=== PATIENT | female | born 1945 | race African-American/Black ===

== ENCOUNTER 2023-05-06 13:15 | Inpatient (IN) | payer MEDICARE, MEDICAID ==
[~2023-05-06] VITALS: Ht 152.4 cm; Wt 80.7 kg
[~2023-05-06 13:15] MED LIST: INSU100C6
[2023-05-06 14:11] LABS: BG BASE EXCESS -2.5 mmol/L (-2.0-2.0); BG CARBOXYHEMOGLOBIN 0.9 % (0.5-1.5); BG DEOXYHEMOGLOBIN 4.6 % (0.0-5.0); BG FRACTION INSPIRED OXYGEN 21; BG METHEMOGLOBIN 0.2 % (0.0-1.5); BG OXYGEN SATURATION 95.3 % (92.0-98.5); BG OXYHEMOGLOBIN 94.3 % (94.0-97.0); BG PCO2 37.3 mmHg (35.0-45.0); BG PH 7.388 (7.350-7.450); BG SAMPLE SITE RIGHT RADIAL; BG TOTAL HEMOGLOBIN 14.4 g/dL (12.0-18.0); BG VENT MODE ROOM AIR
[2023-05-06 15:20] LABS: BASOPHILS % 0.5 % (0.0-2.0); EOSINOPHILS % 0.3 % (0.0-5.0); HEMOGLOBIN. 13.1 g/dL (12.0-16.0); LYMPHOCYTES % 14.5 % (20.0-50.0); MEAN CORPUSCULAR HEMOGLOBIN 30.2 pg (28.0-32.0); MEAN CORPUSCULAR VOLUME 94.4 fL (81.0-99.0); MONOCYTES % 5.3 % (2.0-8.0); NEUTROPHILS % 79.4 % (40.0-76.0); PLATELET 170 x1000/uL (130-400); RED BLOOD CELL COUNT 4.35 mill/uL (4.2-5.4); RED CELL DISTRIBUTION WIDTH 13.5 % (11.6-14.6); WHITE BLOOD COUNT 10.7 x1000/uL (4.5-11.0)
[2023-05-06 15:36] LABS: ALANINE AMINOTRANSFERASE 12 IU/L (10-49); ALBUMIN 3.9 g/dL (3.2-4.8); ASPARTATE AMINOTRANSFERASE 18 IU/L (<34); BILIRUBIN TOTAL 0.3 mg/dL (0.1-1.0); CALCIUM 8.8 mg/dL (8.7-10.4); CARBON DIOXIDE 22 mEq/L (21-32); CHLORIDE 106 mEq/L (98-107); CREATININE 1.3 mg/dL (0.6-1.0); ETHANOL BLOOD < 10 mg/dL (<10); GLUCOSE 263 mg/dL (70-105); POTASSIUM 4.7 mEq/L (3.5-5.1); PROTEIN TOTAL 7.5 g/dL (6.0-8.3); SODIUM 136 mEq/L (136-145); TROPONIN I HIGH SENSITIVITY 17 ng/L (3.0-34); UREA NITROGEN BLOOD 23 mg/dL (9-23)
[2023-05-06 16:08] LABS: CLARITY URINE CLOUDY (CLEAR); COLOR URINE YELLOW (YELLOW); GLUCOSE URINE 2+ (NEGATIVE); KETONES URINE NEGATIVE (NEGATIVE); LEUKOCYTE ESTERASE URINE 1+ (NEGATIVE); NITRITE URINE POSITIVE (NEGATIVE); OCCULT BLOOD URINE TRACE (NEGATIVE); PH URINE 5.5 (4.5-8.0); PROTEIN URINE 2+ (NEGATIVE); SPECIFIC GRAVITY URINE 1.019 (1.005-1.030); UROBILINOGEN URINE 0.2 E.U./dL (0.2-1.0)
[2023-05-06 16:25] LABS: BETA HYDROXYBUTYRATE 0.1 mMol/L (0.0-0.3)
[2023-05-06 16:28] LABS: BACTERIA URINE 4+; RBC URINE 0-2 /hpf (0-2); SQUAMOUS EPITHELIAL CELL URINE 1+ /lpf (RARE/1+); WBC URINE 15-25 /hpf (0-2)
[2023-05-06 16:40] LABS: *AMPHETAMINES SCREEN URINE NEGATIVE (NEGATIVE); *BARBITURATES SCREEN URINE NEGATIVE (NEGATIVE); *BENZODIAZEPINES SCREEN URINE NEGATIVE (NEGATIVE); *COCAINE SCREEN URINE NEGATIVE (NEGATIVE); CANNABINOID URINE SCREEN NEGATIVE (NEGATIVE); ECSTASY MDMA SCREEN URINE NEGATIVE (NEGATIVE); METHADONE URINE SCREEN Neg (NEGATIVE); OPIATES URINE SCREEN NEGATIVE (NEGATIVE); PHENCYCLIDINE URINE SCREEN NEGATIVE (NEGATIVE)
[2023-05-06] MEDS ORDERED: SODIUM CHLORIDE 0.9% 1000ML BAG (SEPSIS BOLUS) IV NR (17:30)
[2023-05-06] MEDS ORDERED: SODIUM CHLORIDE 0.9% 1,000 ML IV ONE (17:30)
[2023-05-06] MEDS ORDERED: CEFTRIAXONE 1GM PREMIX 50 ML IV NR (17:30)
[2023-05-06] MEDS ORDERED: LABETALOL 5MG/ML SYR 20 MG/4 ML SYRINGE IV ONE (17:45)
[2023-05-06 17:49] LABS: LACTIC ACID 2.7 mmol/L (0.4-2.0)
[2023-05-07 05:25] VITALS: BP 142/56; PULSE 81; RESP 18; TEMP 97.7
[2023-05-07 08:00] VITALS: BP 177/74; PULSE 78; RESP 16; TEMP 96.7
[2023-05-07] MEDS ORDERED: IPRATROPIUM/ALBUTEROL 0.5-3(2.5)MG/3ML NEB HHN PRN (10:45)
[2023-05-07] MEDS ORDERED: DEXTROSE 50% WATER 50ML SYRINGE IV PRN (10:45)
[2023-05-07] MEDS ORDERED: CLONIDINE 0.1MG TABLET PO PRN (10:45)
[2023-05-07] MEDS ORDERED: ACETAMINOPHEN 325MG TABLET PO PRN (10:45)
[2023-05-07] MEDS ORDERED: DOCUSATE SODIUM 100MG CAPSULE PO PRN (10:45)
[2023-05-07] MEDS: SODIUM CHLORIDE 0.45% 1,000 ML IV SCH (10:45)
[2023-05-07] MEDS ORDERED: ONDANSETRON HCL 4MG/2ML INJ IV PRN (10:45)
[2023-05-07] MEDS ORDERED: NALOXONE HCL 0.4MG/ML VIAL IV PRN (11:15)
[2023-05-07 12:00] VITALS: BP 166/53; PULSE 75; RESP 16; TEMP 96.1
[2023-05-07] MEDS: BLOOD SUGAR DIAGNOSTIC STRIP TEST SCH ×3 (12:10→21:00)
[2023-05-07] MEDS: INSULIN LISPRO 100 UNITS/ML SUBCUT SCH ×3 (12:40→23:02)
[2023-05-07] MEDS: QUETIAPINE FUMARATE 25MG TABLET PO SCH ×2 (13:49→23:01)
[2023-05-07] MEDS: AMLODIPINE 10MG TABLET PO SCH (13:50)
[2023-05-07] MEDS: HYDRALAZINE HCL 25MG TABLET PO SCH ×2 (13:50→23:01)
[2023-05-07 16:00] VITALS: BP 122/54; PULSE 84; RESP 18; TEMP 96
[2023-05-07 17:10] LABS: BASOPHILS % 0.7 % (0.0-2.0); EOSINOPHILS % 1.1 % (0.0-5.0); HEMATOCRIT. 37.7 % (36.0-48.0); HEMOGLOBIN. 12.2 g/dL (12.0-16.0); MEAN CORPUSCULAR HEMOGLOBIN 30.6 pg (28.0-32.0); MEAN CORPUSCULAR HGB CONC 32.3 g/dL (31.0-37.0); MEAN CORPUSCULAR VOLUME 94.7 fL (81.0-99.0); MONOCYTES % 7.3 % (2.0-8.0); NEUTROPHILS % 53.9 % (40.0-76.0); PLATELET 168 x1000/uL (130-400); RED BLOOD CELL COUNT 3.99 mill/uL (4.2-5.4); RED CELL DISTRIBUTION WIDTH 13.1 % (11.6-14.6); WHITE BLOOD COUNT 7.9 x1000/uL (4.5-11.0)
[2023-05-07 17:47] LABS: AMMONIA 31 uMol/L (<32)
[2023-05-07 17:52] LABS: ALANINE AMINOTRANSFERASE 11 IU/L (10-49); ALBUMIN 3.7 g/dL (3.2-4.8); ASPARTATE AMINOTRANSFERASE 21 IU/L (<34); BILIRUBIN TOTAL 0.7 mg/dL (0.1-1.0); CALCIUM 8.8 mg/dL (8.7-10.4); CARBON DIOXIDE 18 mEq/L (21-32); CHLORIDE 107 mEq/L (98-107); CREATININE 1.1 mg/dL (0.6-1.0); GLUCOSE 201 mg/dL (70-105); POTASSIUM 4.1 mEq/L (3.5-5.1); PROTEIN TOTAL 7.1 g/dL (6.0-8.3); SODIUM 138 mEq/L (136-145); UREA NITROGEN BLOOD 15 mg/dL (9-23)
[2023-05-07] MEDS: CEFTRIAXONE 1,000 MG in DEXTROSE 5% WATER 50 ML IV SCH (18:34)
[2023-05-07 20:00] VITALS: BP 150/66; PULSE 92; RESP 17; TEMP 97.5
[2023-05-07] MEDS: HYDROCODONE/ACETAMINOPHEN 5/325MG TABLET PO PRN (23:06)
[2023-05-08] VITALS: BP 97/44; PULSE 58; RESP 18; TEMP 97.5
[2023-05-08 04:00] VITALS: BP 147/64; PULSE 82; RESP 18; TEMP 97.7
[2023-05-08 06:17] LABS: BASOPHILS % 0.5 % (0.0-2.0); EOSINOPHILS % 0.3 % (0.0-5.0); HEMATOCRIT. 36.2 % (36.0-48.0); HEMOGLOBIN. 12.2 g/dL (12.0-16.0); LYMPHOCYTES % 18.9 % (20.0-50.0); MEAN CORPUSCULAR HEMOGLOBIN 30.9 pg (28.0-32.0); MEAN CORPUSCULAR HGB CONC 33.6 g/dL (31.0-37.0); MEAN PLATELET VOLUME 10.8 fl (7.4-10.4); NEUTROPHILS % 72.3 % (40.0-76.0); PLATELET 144 x1000/uL (130-400); RED BLOOD CELL COUNT 3.93 mill/uL (4.2-5.4); RED CELL DISTRIBUTION WIDTH 13.5 % (11.6-14.6); WHITE BLOOD COUNT 8.2 x1000/uL (4.5-11.0)
[2023-05-08 06:21] LABS: CALCIUM 8.7 mg/dL (8.7-10.4); CREATININE 1.3 mg/dL (0.6-1.0); POTASSIUM 4.5 mEq/L (3.5-5.1)
[2023-05-08] MEDS: BLOOD SUGAR DIAGNOSTIC STRIP TEST SCH ×4 (06:38→20:50)
[2023-05-08] MEDS: HYDRALAZINE HCL 25MG TABLET PO SCH ×3 (07:13→21:18)
[2023-05-08] MEDS: INSULIN LISPRO 100 UNITS/ML SUBCUT SCH ×4 (07:16→21:16)
[2023-05-08] MEDS: SODIUM CHLORIDE 0.45% 1,000 ML IV SCH (07:17)
[2023-05-08 08:00] VITALS: BP 103/45; PULSE 62; RESP 16; TEMP 97
[2023-05-08] MEDS: AMLODIPINE 10MG TABLET PO SCH (08:37)
[2023-05-08] MEDS: QUETIAPINE FUMARATE 25MG TABLET PO SCH ×2 (08:37→20:49)
[2023-05-08 12:00] VITALS: BP 127/78; PULSE 85; RESP 18; TEMP 96.6
[2023-05-08 16:00] VITALS: BP 118/44; PULSE 89; RESP 18; TEMP 96.4
[2023-05-08] MEDS: ACETAMINOPHEN 325MG TABLET PO PRN (16:41)
[2023-05-08] MEDS: CEFTRIAXONE 1,000 MG in DEXTROSE 5% WATER 50 ML IV SCH (16:41)
[2023-05-08 20:00] VITALS: BP 104/48; PULSE 87; RESP 18; TEMP 97.5
[2023-05-09] VITALS: BP 153/50; PULSE 86; RESP 20; TEMP 98.2
[2023-05-09] MEDS: ACETAMINOPHEN 325MG TABLET PO PRN (02:58)
[2023-05-09 04:00] VITALS: BP 158/67; PULSE 89; RESP 18; TEMP 98.2
[2023-05-09] MEDS: HYDRALAZINE HCL 25MG TABLET PO SCH ×3 (06:23→22:00)
[2023-05-09] MEDS: BLOOD SUGAR DIAGNOSTIC STRIP TEST SCH ×4 (06:23→21:00)
[2023-05-09] MEDS: INSULIN LISPRO 100 UNITS/ML SUBCUT SCH ×4 (06:45→20:59)
[2023-05-09 08:00] VITALS: BP 139/59; PULSE 83; RESP 20; TEMP 97.7
[2023-05-09] MEDS: QUETIAPINE FUMARATE 25MG TABLET PO SCH ×2 (08:21→20:56)
[2023-05-09] MEDS: AMLODIPINE 10MG TABLET PO SCH (08:21)
[2023-05-09 10:35] LABS: EOSINOPHILS % 2.7 % (0.0-5.0); HEMATOCRIT. 38.2 % (36.0-48.0); HEMOGLOBIN. 12.7 g/dL (12.0-16.0); LYMPHOCYTES % 32.1 % (20.0-50.0); MEAN CORPUSCULAR HEMOGLOBIN 30.7 pg (28.0-32.0); MEAN CORPUSCULAR HGB CONC 33.2 g/dL (31.0-37.0); MEAN CORPUSCULAR VOLUME 92.5 fL (81.0-99.0); MEAN PLATELET VOLUME 10.3 fl (7.4-10.4); MONOCYTES % 8.8 % (2.0-8.0); NEUTROPHILS % 55.4 % (40.0-76.0); PLATELET 177 x1000/uL (130-400); RED BLOOD CELL COUNT 4.13 mill/uL (4.2-5.4); RED CELL DISTRIBUTION WIDTH 13.7 % (11.6-14.6); WHITE BLOOD COUNT 7.3 x1000/uL (4.5-11.0)
[2023-05-09 11:48] LABS: CREATININE 1.3 mg/dL (0.6-1.0)
[2023-05-09 12:00] VITALS: BP 115/58; PULSE 93; RESP 20; TEMP 97.6
[2023-05-09] MEDS: SODIUM CHLORIDE 0.45% 1,000 ML IV SCH (12:15)
[2023-05-09 16:00] VITALS: BP 128/49; PULSE 91; RESP 20; TEMP 97.7
[2023-05-09] MEDS: CEFTRIAXONE 1,000 MG in DEXTROSE 5% WATER 50 ML IV SCH (17:00)
[2023-05-09] MEDS: HYDROCODONE/ACETAMINOPHEN 5/325MG TABLET PO PRN (19:11)
[2023-05-09 20:00] VITALS: BP 101/49; PULSE 87; RESP 20; TEMP 97.5
[2023-05-10] VITALS: BP 142/59; PULSE 88; RESP 19; TEMP 96.8
[2023-05-10 04:00] VITALS: BP 146/69; PULSE 85; RESP 18; TEMP 96.8
[2023-05-10] MEDS: BLOOD SUGAR DIAGNOSTIC STRIP TEST SCH ×2 (06:30→12:25)
[2023-05-10] MEDS: HYDRALAZINE HCL 25MG TABLET PO SCH ×2 (06:30→12:57)
[2023-05-10] MEDS: INSULIN LISPRO 100 UNITS/ML SUBCUT SCH ×2 (06:39→12:25)
[2023-05-10 08:00] VITALS: BP 112/49; PULSE 103; RESP 20; TEMP 97.7
[2023-05-10] MEDS: QUETIAPINE FUMARATE 25MG TABLET PO SCH (08:22)
[2023-05-10] MEDS: AMLODIPINE 10MG TABLET PO SCH (08:23)
[2023-05-10 11:31] LABS: BASOPHILS % 0.9 % (0.0-2.0); EOSINOPHILS % 1.3 % (0.0-5.0); HEMATOCRIT. 32.1 % (36.0-48.0); HEMOGLOBIN. 10.9 g/dL (12.0-16.0); LYMPHOCYTES % 19.6 % (20.0-50.0); MEAN CORPUSCULAR HEMOGLOBIN 31.1 pg (28.0-32.0); MEAN CORPUSCULAR HGB CONC 33.9 g/dL (31.0-37.0); MEAN CORPUSCULAR VOLUME 91.7 fL (81.0-99.0); MEAN PLATELET VOLUME 10.8 fl (7.4-10.4); MONOCYTES % 9.5 % (2.0-8.0); NEUTROPHILS % 68.7 % (40.0-76.0); PLATELET 159 x1000/uL (130-400); RED CELL DISTRIBUTION WIDTH 13.9 % (11.6-14.6); WHITE BLOOD COUNT 5.7 x1000/uL (4.5-11.0)
[2023-05-10 12:00] VITALS: BP 143/56; PULSE 110; RESP 18; TEMP 97.8
[2023-05-10 12:07] LABS: CALCIUM 8.5 mg/dL (8.7-10.4); CREATININE 1.2 mg/dL (0.6-1.0); POTASSIUM 4.4 mEq/L (3.5-5.1)
[2023-05-10] MEDS ORDERED: CIPR-264 MT (13:31)
[2023-05-10 14:40] VITALS: BP 135/86; PULSE 95; TEMP 98; O2SAT 96
[2023-05-10 15:54] VITALS: BP 156/45; PULSE 95; RESP 20; TEMP 97
== END 2023-05-10 16:20 | disposition home or self-care (01) | DRG 554 ==
LOC: ER 13:15 → 8WST 21:05 → EDBEDREQ 21:18 → EDBEDREQTM 21:18
PROVIDERS: ADMIT Internal Medicine; ATTEND Internal Medicine
DX: M19.012 Primary osteoarthritis, left shoulder (principal); N17.9 Acute kidney failure, unspecified; N39.0 Urinary tract infection, site not specified; E87.20 Acidosis, unspecified; I16.0 Hypertensive urgency; B96.89 Other specified bacterial agents as the cause of diseases classified elsewhere; E11.9 Type 2 diabetes mellitus without complications; I10 Essential (primary) hypertension; F22 Delusional disorders; Z79.899 Other long term (current) drug therapy
CPT/HCPCS: 36415; 36600; 71045; 71250; 73030; 73200; 80048; 80053; 80061; 80305; 80320; 81003; 82010; 82140; 82375; 82805; 82962; 83036; 83605; 83930; 84145; 84484; 85025; 87186; 93005; 99291; J0696; J1815; J3490; J7060; G0480